=== PATIENT | male | born 1990 | race Caucasian/White ===

== ENCOUNTER 2019-01-28 00:33 | Emergency (ER) | payer SELFPAY ==
[~2019-01-28] VITALS: Ht 185.4 cm; Wt 132.0 kg
[2019-01-28 01:30] VITALS: BP 157/104
== END 2019-01-28 02:50 | disposition left against medical advice (07) ==
LOC: ER 00:33
DX: R07.89 Other chest pain (principal); F41.9 Anxiety disorder, unspecified; I10 Essential (primary) hypertension; F20.9 Schizophrenia, unspecified; F15.10 Other stimulant abuse, uncomplicated
CPT/HCPCS: 93005; 99284

== ENCOUNTER 2019-03-04 16:33 | Emergency (ER) | payer MEDICAID ==
[~2019-03-04] VITALS: Ht 172.7 cm; Wt 104.0 kg
[2019-03-04 20:56] LABS: CHLORIDE 102 mEq/L (98-107)
[2019-03-04 20:59] LABS: BASOPHILS % 0.4 % (0.0-2.0); EOSINOPHILS % 0.7 % (0.0-5.0); ETHANOL BLOOD 188 mg/dL; HEMATOCRIT. 45.6 % (42.0-52.0); HEMOGLOBIN. 16.1 g/dL (14.0-18.0); LYMPHOCYTES % 25.1 % (20.0-50.0); MEAN CORPUSCULAR HEMOGLOBIN 29.9 pg (28.0-32.0); MEAN CORPUSCULAR VOLUME 84.8 fL (80.0-94.0); MEAN PLATELET VOLUME 8.2 fl (7.4-10.4); MONOCYTES % 5.4 % (2.0-8.0); NEUTROPHILS % 68.4 % (40.0-76.0); PLATELET 192 x1000/uL (130-400); RED BLOOD CELL COUNT 5.38 mill/uL (4.7-6.1); RED CELL DISTRIBUTION WIDTH 15.6 % (11.6-14.6)
[2019-03-05 02:55] LABS: *AMPHETAMINES SCREEN URINE NEGATIVE (NEGATIVE); *BARBITURATES SCREEN URINE NEGATIVE (NEGATIVE); *BENZODIAZEPINES SCREEN URINE NEGATIVE (NEGATIVE); *COCAINE SCREEN URINE NEGATIVE (NEGATIVE); CANNABINOID URINE SCREEN NEGATIVE (NEGATIVE); METHADONE URINE SCREEN NEGATIVE (NEGATIVE); OPIATES URINE SCREEN NEGATIVE (NEGATIVE); PHENCYCLIDINE URINE SCREEN NEGATIVE (NEGATIVE)
[2019-03-05] MEDS ORDERED: BUSPIRONE HCL 10MG TABLET PO ONE (08:00)
[2019-03-05] MEDS ORDERED: BENAZEPRIL 10MG TABLET PO ONE (08:15)
[2019-03-05 12:24] VITALS: BP 149/87
== END 2019-03-05 12:29 | disposition home or self-care (01) ==
LOC: ER 23:03
DX: F10.129 Alcohol abuse with intoxication, unspecified (principal); R45.851 Suicidal ideations; Y90.6 Blood alcohol level of 120-199 mg/100 ml; R79.89 Other specified abnormal findings of blood chemistry; I10 Essential (primary) hypertension
CPT/HCPCS: 36415; 80305; 80307; 80320; 80329; 99283; G0480

== ENCOUNTER 2019-07-08 05:00 | Emergency (ER) | payer MEDICAID, OTHER ==
[~2019-07-08] VITALS: Ht 185.4 cm; Wt 147.0 kg
[2019-07-08 07:49] VITALS: BP 149/84
== END 2019-07-08 08:30 | disposition home or self-care (01) ==
LOC: ER 05:00
DX: M67.48 Ganglion, other site (principal); L72.3 Sebaceous cyst; I10 Essential (primary) hypertension
CPT/HCPCS: 99283; Z7610

== ENCOUNTER 2019-09-18 22:24 | Emergency (ER) | payer MEDICAID, OTHER ==
[~2019-09-18] VITALS: Ht 172.7 cm; Wt 96.0 kg
[2019-09-18 22:33] VITALS: BP 180/100
== END 2019-09-19 00:15 | disposition home or self-care (01) ==
LOC: ER 22:24
DX: T43.611A Poisoning by caffeine, accidental (unintentional), initial encounter (principal); F41.9 Anxiety disorder, unspecified; R00.2 Palpitations; F15.180 Other stimulant abuse with stimulant-induced anxiety disorder; R03.0 Elevated blood-pressure reading, without diagnosis of hypertension; Y92.89 Other specified places as the place of occurrence of the external cause
CPT/HCPCS: 93005; 99283

== ENCOUNTER 2020-05-02 05:57 | Emergency (ER) | payer MEDICAID, OTHER ==
[~2020-05-02] VITALS: Ht 190.5 cm; Wt 127.0 kg
[2020-05-02 07:45] VITALS: BP 151/101
== END 2020-05-02 08:23 | disposition home or self-care (01) ==
LOC: ER 05:57
DX: Z03.818 Encounter for observation for suspected exposure to other biological agents ruled out (principal); B34.9 Viral infection, unspecified; I10 Essential (primary) hypertension; J98.6 Disorders of diaphragm; F32.9 Major depressive disorder, single episode, unspecified
CPT/HCPCS: 71045; 87635; 93005; 99285; Z7610

== ENCOUNTER 2020-07-02 19:36 | Emergency (ER) | payer MEDICAID ==
[~2020-07-02] VITALS: Ht 185.4 cm; Wt 109.0 kg
[2020-07-02 19:52] VITALS: BP 133/86
[2020-07-02] MEDS ORDERED: PREDNISONE 20MG TABLET PO STA (21:50)
[2020-07-02] MEDS ORDERED: IPRATROPIUM BROMIDE (0.02%) 0.5MG/2.5ML NEB HHN STA (21:50)
[2020-07-02] MEDS ORDERED: ALBUTEROL (0.083%) 2.5MG/3ML NEB HHN SCH (22:00)
== END 2020-07-02 22:39 | disposition left against medical advice (07) ==
LOC: ER 19:36
DX: J45.909 Unspecified asthma, uncomplicated (principal); F15.10 Other stimulant abuse, uncomplicated; R45.1 Restlessness and agitation; F91.8 Other conduct disorders; E66.01 Morbid (severe) obesity due to excess calories; Z68.31 Body mass index [BMI] 31.0-31.9, adult
CPT/HCPCS: 71045; 93005; 99283

== ENCOUNTER 2022-01-21 19:08 | Emergency (ER) | payer MEDICAID, OTHER ==
[~2022-01-21] VITALS: Ht 185.4 cm; Wt 109.0 kg
[~2022-01-21 19:08] MED LIST: ASPI-1497 PO; ATOR-2 PO; BUSP30TA2 PO; GLIP5TAB12 PO; METF-414 PO
[2022-01-21] MEDS ORDERED: ACETAMINOPHEN 325MG TABLET PO STA (22:27)
[2022-01-21] MEDS ORDERED: MAGNESIUM/ALUMINUM HYDROXIDE/SIMETHICONE 30ML UDC PO STA (22:27)
[2022-01-21 23:30] LABS: BASOPHILS % 0.4 % (0.0-2.0); EOSINOPHILS % 1.6 % (0.0-5.0); HEMATOCRIT. 37.1 % (42.0-52.0); HEMOGLOBIN. 12.4 g/dL (14.0-18.0); MEAN CORPUSCULAR HEMOGLOBIN 30.2 pg (28.0-32.0); MEAN CORPUSCULAR VOLUME 90.2 fL (80.0-94.0); MEAN PLATELET VOLUME 7.7 fl (7.4-10.4); MONOCYTES % 8.4 % (2.0-8.0); NEUTROPHILS % 72.6 % (40.0-76.0); PLATELET 163 x1000/uL (130-400); RED BLOOD CELL COUNT 4.12 mill/uL (4.7-6.1)
[2022-01-21 23:47] LABS: CHLORIDE 108 mEq/L (98-107)
[2022-01-21 23:55] LABS: ETHANOL BLOOD < 10 mg/dL
[2022-01-22 00:45] LABS: CLARITY URINE CLEAR (CLEAR); COLOR URINE YELLOW (YELLOW); KETONES URINE NEGATIVE (NEGATIVE); LEUKOCYTE ESTERASE URINE NEGATIVE (NEGATIVE); NITRITE URINE NEGATIVE (NEGATIVE); OCCULT BLOOD URINE TRACE (NEGATIVE); PH URINE 5.5 (4.5-8.0); PROTEIN URINE 4+ (NEGATIVE); SPECIFIC GRAVITY URINE 1.026 (1.005-1.030); UROBILINOGEN URINE 0.2 E.U./dL (0.2-1.0)
[2022-01-22 01:00] LABS: *AMPHETAMINES SCREEN URINE NEGATIVE (NEGATIVE); *BARBITURATES SCREEN URINE NEGATIVE (NEGATIVE); *BENZODIAZEPINES SCREEN URINE NEGATIVE (NEGATIVE); *COCAINE SCREEN URINE NEGATIVE (NEGATIVE); CANNABINOID URINE SCREEN NEGATIVE (NEGATIVE); METHADONE URINE SCREEN NEGATIVE (NEGATIVE); OPIATES URINE SCREEN NEGATIVE (NEGATIVE); PHENCYCLIDINE URINE SCREEN NEGATIVE (NEGATIVE)
[2022-01-22 03:00] VITALS: BP 138/89
[2022-01-22] MEDS ORDERED: TOPUD PO (12:11)
== END 2022-01-22 03:26 | disposition home or self-care (01) ==
LOC: ER 19:08
DX: R10.33 Periumbilical pain (principal); R51.9 Headache, unspecified; I10 Essential (primary) hypertension; G40.909 Epilepsy, unspecified, not intractable, without status epilepticus; E11.9 Type 2 diabetes mellitus without complications; F15.90 Other stimulant use, unspecified, uncomplicated
CPT/HCPCS: 36415; 74176; 80053; 80305; 80320; 81003; 85025; 99284; G0480

== ENCOUNTER 2022-01-22 10:41 | Emergency (ER) | payer MEDICAID, OTHER ==
[~2022-01-22] VITALS: Ht 182.9 cm; Wt 117.0 kg
[2022-01-22 10:46] VITALS: BP 151/116
[2022-01-22] MEDS ORDERED: KETOROLAC 30MG/ML VIAL IV STA (10:52)
[2022-01-22] MEDS ORDERED: SODIUM CHLORIDE 0.9% 1,000 ML IV ONE (11:00)
[2022-01-22] MEDS ORDERED: METOCLOPRAMIDE HCL 10MG/2ML VIAL IV ONE (11:00)
[2022-01-22] MEDS ORDERED: TOPUD PO (12:11)
== END 2022-01-22 12:43 | disposition home or self-care (01) ==
LOC: ER 10:41
DX: R51.9 Headache, unspecified (principal); I10 Essential (primary) hypertension; E11.9 Type 2 diabetes mellitus without complications; G40.909 Epilepsy, unspecified, not intractable, without status epilepticus; F15.90 Other stimulant use, unspecified, uncomplicated
CPT/HCPCS: 96361; 96374; 96375; 99284; J1885; J2765; J7030

== ENCOUNTER 2022-01-23 11:49 | Emergency (ER) | payer OTHER ==
[~2022-01-23] VITALS: Ht 185.4 cm; Wt 109.0 kg
[~2022-01-23 11:49] MED LIST changes: +TOPUD PO
[2022-01-23] MEDS ORDERED: SODIUM CHLORIDE 0.9% 1,000 ML IV ONE (13:00)
[2022-01-23] MEDS ORDERED: ONDANSETRON HCL 4MG/2ML INJ IV ONE (13:00)
[2022-01-23] MEDS ORDERED: HYDROCODONE/ACETAMINOPHEN 10/325MG TABLET PO ONE (13:00)
[2022-01-23 14:00] LABS: CHLORIDE 105 mEq/L (98-107)
[2022-01-23 14:02] LABS: BASOPHILS % 0.5 % (0.0-2.0); EOSINOPHILS % 1.3 % (0.0-5.0); HEMATOCRIT. 34.2 % (42.0-52.0); HEMOGLOBIN. 12.1 g/dL (14.0-18.0); LYMPHOCYTES % 14.1 % (20.0-50.0); MEAN CORPUSCULAR HEMOGLOBIN 30.3 pg (28.0-32.0); MEAN CORPUSCULAR VOLUME 85.6 fL (80.0-94.0); MONOCYTES % 8.1 % (2.0-8.0); PLATELET 175 x1000/uL (130-400); RED CELL DISTRIBUTION WIDTH 13.9 % (11.6-14.6)
[2022-01-23] MEDS ORDERED: KETOROLAC 30MG/ML VIAL IV SCH (14:45)
[2022-01-23 17:15] LABS: CLARITY URINE CLEAR (CLEAR); COLOR URINE YELLOW (YELLOW); KETONES URINE NEGATIVE (NEGATIVE); LEUKOCYTE ESTERASE URINE NEGATIVE (NEGATIVE); NITRITE URINE NEGATIVE (NEGATIVE); OCCULT BLOOD URINE NEGATIVE (NEGATIVE); PROTEIN URINE 3+ (NEGATIVE); UROBILINOGEN URINE 0.2 E.U./dL (0.2-1.0)
[2022-01-23 18:47] VITALS: BP 157/98
== END 2022-01-23 19:41 | disposition short-term general hospital (02) ==
LOC: ER 12:02
DX: R51.9 Headache, unspecified (principal); E11.65 Type 2 diabetes mellitus with hyperglycemia; D53.9 Nutritional anemia, unspecified; Z20.822 Contact with and (suspected) exposure to COVID-19; Z79.84 Long term (current) use of oral hypoglycemic drugs; Z79.82 Long term (current) use of aspirin; Z79.899 Other long term (current) drug therapy
CPT/HCPCS: 36415; 70450; 71045; 80053; 81003; 83880; 85025; 87426; 96361; 96374; 96375; 99285; J1885; J2405; J7030

== ENCOUNTER 2022-03-09 20:34 | Emergency (ER) | payer MEDICAID, OTHER ==
[~2022-03-09] VITALS: Ht 172.7 cm; Wt 120.0 kg
[2022-03-10 06:01] LABS: BG BASE EXCESS -4.9 mmol/L (-2.0-2.0); BG CARBOXYHEMOGLOBIN 0.4 % (0.5-1.5); BG DEOXYHEMOGLOBIN 5.3 % (0.0-5.0); BG FRACTION INSPIRED OXYGEN 21; BG HCO3 ACT 20.4 mmol/L (22.0-26.0); BG METHEMOGLOBIN 0.2 % (0.0-1.5); BG OXYGEN SATURATION 94.7 % (92.0-98.5); BG OXYHEMOGLOBIN 94.1 % (94.0-97.0); BG PCO2 38.7 mmHg (35.0-45.0); BG PO2 80.5 mmHg (75.0-100.0); BG SAMPLE SITE LEFT RADIAL; BG TOTAL HEMOGLOBIN 13.1 g/dL (12.0-18.0); BG VENT MODE ROOM AIR
[2022-03-10 06:03] LABS: BASOPHILS % 0.6 % (0.0-2.0); EOSINOPHILS % 1.5 % (0.0-5.0); HEMATOCRIT. 36.3 % (42.0-52.0); HEMOGLOBIN. 12.8 g/dL (14.0-18.0); LYMPHOCYTES % 21.5 % (20.0-50.0); MEAN CORPUSCULAR HEMOGLOBIN 30.4 pg (28.0-32.0); MEAN CORPUSCULAR VOLUME 85.8 fL (80.0-94.0); MEAN PLATELET VOLUME 7.6 fl (7.4-10.4); MONOCYTES % 7.8 % (2.0-8.0); NEUTROPHILS % 68.6 % (40.0-76.0); PLATELET 203 x1000/uL (130-400); RED BLOOD CELL COUNT 4.23 mill/uL (4.7-6.1); RED CELL DISTRIBUTION WIDTH 14.4 % (11.6-14.6)
[2022-03-10 06:09] LABS: CHLORIDE 98 mEq/L (98-107)
[2022-03-10] MEDS ORDERED: SODIUM CHLORIDE 0.9% 1,000 ML IV ONE (07:00)
[2022-03-10] MEDS ORDERED: HYDRALAZINE 20MG/ML VIAL IV ONE (09:30)
[2022-03-10 10:23] VITALS: BP 148/95
== END 2022-03-10 10:30 | disposition short-term general hospital (02) ==
LOC: ER 20:34 → CANBEDREQ 03-10 11:18
DX: E87.1 Hypo-osmolality and hyponatremia (principal); I10 Essential (primary) hypertension; E11.9 Type 2 diabetes mellitus without complications; F20.9 Schizophrenia, unspecified; F31.9 Bipolar disorder, unspecified
CPT/HCPCS: 36415; 36600; 71045; 80053; 82375; 82805; 83880; 84484; 85025; 93005; 96361; 96374; 99285; J0360; J7030; Z7610

== ENCOUNTER 2024-12-19 20:02 | Emergency (ER) | payer OTHER ==
[~2024-12-19] VITALS: Ht 175.3 cm; Wt 109.0 kg
[~2024-12-19 20:02] MED LIST changes: -GLIP5TAB12 PO; +GLIP5TAB22 PO
[2024-12-19 20:04] VITALS: BP 208/142; PULSE 107; RESP 18; TEMP 36.8; O2SAT 98
[2024-12-19] MEDS ORDERED: CYCLOBENZAPRINE 10MG TABLET PO ONE (20:15)
== END 2024-12-19 20:33 | disposition left against medical advice (07) ==
LOC: ER 20:02
DX: R06.02 Shortness of breath (principal); M54.9 Dorsalgia, unspecified
CPT/HCPCS: 99283